=== PATIENT | female | born 1955 | race Caucasian/White ===

== ENCOUNTER 2019-03-28 16:07 | Emergency (ER) | payer BC, OTHER ==
[~2019-03-28] VITALS: Ht 160 cm; Wt 65.8 kg
[~2019-03-28 16:07] MED LIST: ARMOUR THYROID15 MG PO; FEMARA2.5 MG NG; HYDROCORTISONE5 MG PO; IBUPROFEN200 M1 PO
[2019-03-28] MEDS ORDERED: ARMOUR THYROID60 MG PO (16:25)
[2019-03-28] MEDS ORDERED: LACTULOSE10 GM/15 M PO (18:15)
[2019-03-28] MEDS ORDERED: FLEET ENEMA133 ML PR (18:15)
--- NOTE | 2019-03-29 11:49 | EKG ---
[facility] [address] [facility] [place], [place] [address] Signed Normal sinus rhythm Normal ECG No previous ECGs available Confirmed by TONEY GREEN DO ([id number]) on 03/29/2019 11:49:23 AM Electronically Signed By: TONEY GREEN DO 03/29/19 1149 PATIENT NAME: ELIDA LR Electrocardiogram DATE OF : 51 PHYSICIAN: TONEY GREEN DO REPORT #: [id number] REPORT IS CONFIDENTIAL AND NOT TO BE RELEASED WITHOUT AUTHORIZATION
== END 2019-03-28 18:47 | disposition home or self-care (01) ==
LOC: ED 16:07
DX: K59.00 Constipation, unspecified (principal); E03.9 Hypothyroidism, unspecified; Z87.891 Personal history of nicotine dependence; Z88.8 Allergy status to other drugs, medicaments and biological substances; Z88.1 Allergy status to other antibiotic agents; Z88.2 Allergy status to sulfonamides; Z79.899 Other long term (current) drug therapy
CPT/HCPCS: 74176; 80053; 81001; 83690; 85025; 93005; 93010; 96361; 96374; 99284-25; J1885; J7030

== ENCOUNTER 2019-04-10 06:22 | Day surgery (SDC) | payer BC, OTHER ==
[~2019-04-10] VITALS: Ht 160 cm; Wt 63.5 kg
[~2019-04-10 06:22] MED LIST changes: +ACYCLOVIR200 MG PO; +ARMOUR THYROID60 MG PO; +CORDRAN TOP; +FLEET ENEMA133 ML PR; +FLOVENT DISKUS50 MCG INH; +IBUPROFEN400 MG PO; +LACTULOSE10 GM/15 M PO; +LORAZEPAM1 MG PO; +MUPIROCIN1 GM
--- NOTE | 2019-04-10 08:13 | NUR ---
04/10/19 0813 Michelle Lord 0803 PT ARRIVED IN PACU SLEEPY WITH NO C/O'S. ABD SOFT. 0813 AT BEDSIDE TALKING WITH PT.
--- NOTE | 2019-04-11 12:13 | OR ---
[facility] [address] [place], [place] [address] Signed DATE OF OPERATION: 04/10/2019 SURGEON: Rasta Velazquez MD PREOPERATIVE DIAGNOSIS: Colon screening. POSTOPERATIVE DIAGNOSIS: Polyps x3. PROCEDURE: Total colonoscopy to cecum with cold morcellation polypectomy x3. ANESTHESIA: Intravenous sedation, fentanyl 100 mcg, Versed 5 mg. INDICATION: This 63-year-old white woman is a patient of CHRIS Govea, and has been recommended to have surveillance colonoscopy. She has a distant history of mastectomy and radiation therapy on the right side for breast cancer a number of years ago. She underwent colonoscopy [address] Maxx Gregory in [place], which was said to be normal. She is symptom free having no bleeding, diarrhea, or constipation problems. She has no family history of colon cancer that she is aware of. She understands risks of bleeding, infection, and perforation related to colonoscopy and wished to proceed. FINDINGS: The prep was excellent. Complete colonoscopy was undertaken to the cecum. There were two small polyps of the colon, possibly a 3rd, though it may represent only hyperplastic area of the colon. All three were excised. DESCRIPTION OF PROCEDURE: The patient was brought to the endoscopy suite and placed in lateral decubitus position, given intravenous sedation to the point of slurred speech and nystagmus. Digital rectal examination was normal. An Olympus video colonoscope was passed in the rectum and manipulated throughout the colon ultimately intubating the cecum itself. The ileocecal valve and appendiceal orifice were normal. The scope was withdrawn from that point and careful examination showed no sign of abnormality until approximately 40 cm from the anal verge where a small polyp was noted. This was excised with cold morcellation technique. The scope Electronically Signed By: RASTA VELAZQUEZ MD 04/11/19 1213 PATIENT NAME: ELIDA LR OPERATIVE REPORT DATE OF : 51 REPORT #: [id number] PHYSICIAN: RASTA VELAZQUEZ MD PCP: NO PRIMARY CARE PHYSICIAN REPORT IS CONFIDENTIAL AND NOT TO BE RELEASED WITHOUT AUTHORIZATION [facility] [address] [place], [place] [address] Signed was further withdrawn. In the sigmoid, was another similar such polyp, it too was excised with cold morcellation technique. The 3rd area, most likely hyperplastic was located nearby and this was excised as well. Retroflexed view of the rectum was normal. There were no other findings of concern. The scope was removed. The patient was taken to recovery room in good condition. CONCLUDING DIAGNOSIS: Polyps x3. PLAN: Recommend repeat colonoscopy in 5 years sooner if clinically indicated. She will return to the ongoing care of CHRIS Govea. MD MIKE Jones/RODY /[id number] cc: CHRIS Govea Copies: ~ Electronically Signed By: RASTA VELAZQUEZ MD 04/11/19 1213 PATIENT NAME: ELIDA LR OPERATIVE REPORT DATE OF : 51 REPORT #: [id number] PHYSICIAN: RASTA VELAZQUEZ MD PCP: NO PRIMARY CARE PHYSICIAN REPORT IS CONFIDENTIAL AND NOT TO BE RELEASED WITHOUT AUTHORIZATION
--- NOTE | 2019-04-11 14:54 | PATH ---
[facility] [address] [facility] [place] [place] [address] Signed SPECIMEN(S): A COLON POLYP AT 40 CM SPECIMEN(S): B COLON POLYP AT 20 CM SPECIMEN(S): C COLON POLYP AT 15 CM SPECIMEN SOURCE: A. COLON POLYP AT 40 CM B. COLON POLYP AT 20 CM C. COLON POLYP AT 15 CM CLINICAL HISTORY: Surveillance colonoscopy, history breast cancer. MICROSCOPIC DESCRIPTION: Histologic sections of all submitted blocks are examined by light microscopy. These findings, together with the gross examination, support the pathologic diagnosis. FINAL PATHOLOGIC DIAGNOSIS: A. Mucosa, colon at 40 cm, biopsy: - Tubular adenoma. B. Mucosa, colon at 20 cm, biopsy: - Hyperplastic polyp. C. Mucosa, colon at 15 cm, biopsy: - Hyperplastic polyp. LJA:cml:C2NR GROSS DESCRIPTION: Three specimens are received in three containers, labeled "SJ." A. The specimen, labeled "SJ, colon polyp at 40 cm per requisition," is received in formalin and consists of single harris soft tissue fragment that measures 0.3 cm in greatest dimension. The specimen is entirely submitted in cassette (A1). B. The specimen, labeled "SJ, colon polyp at 20 cm per requisition," is received in formalin and consists of three harris soft tissue fragments that measure 0.4 cm in greatest dimension. The specimen is entirely submitted in cassette (B1). C. The specimen, labeled "SJ, possible polyp at 15 cm per container," is received in formalin and consists of two harris soft tissue fragments that measure 0.3 cm in greatest dimension. The specimen is entirely submitted in cassette (C1). AT (under the direct supervision of a pathologist) PATIENT NAME: ELIDA LR PATHOLOGY DATE OF : 51 REPORT #: [id number] PHYSICIAN: ELISHA GALLAGHER PCP: NO PRIMARY CARE PHYSICIAN REPORT IS CONFIDENTIAL AND NOT TO BE RELEASED WITHOUT AUTHORIZATION [facility] [address] [place] [address] Signed The Gross Description was prepared using a voice recognition system. The report was reviewed for accuracy; however, sound-alike word errors, addition and/or deletions may occur. If there is any question about this report, please contact Client Services. PERFORMING LABORATORY: The technical component [place] [address] (Production Control Coordinator: Jessica Flaherty MD; CLIA# [id number]). Professional [facility] by [facility] [place], [address] [address] (CLIA# [id number]). Diagnostician: Adi Garcia MD Pathologist Electronically Signed 04/11/2019 Copies: ~ PATIENT NAME: ELIDA LR PATHOLOGY DATE OF : 51 REPORT #: [id number] PHYSICIAN: ELISHA PATHOLOGY PCP: NO PRIMARY CARE PHYSICIAN REPORT IS CONFIDENTIAL AND NOT TO BE RELEASED WITHOUT AUTHORIZATION
== END 2019-04-10 08:42 | disposition home or self-care (01) ==
LOC: OPS 06:22 → DS 06:22 → OPS 06:45 → DS 06:45 → OPS 08:42
PROVIDERS: Surgery
PROC: 0DBE8ZZ Excision of Large Intestine, Via Natural or Artificial Opening Endoscopic (ICD-10-PCS; principal; 2019-04-10 06:45)
DX: Z12.11 Encounter for screening for malignant neoplasm of colon (principal); D12.6 Benign neoplasm of colon, unspecified; K63.5 Polyp of colon; E03.9 Hypothyroidism, unspecified; Z88.8 Allergy status to other drugs, medicaments and biological substances; Z88.1 Allergy status to other antibiotic agents; Z91.041 Radiographic dye allergy status; Z79.899 Other long term (current) drug therapy; Z85.3 Personal history of malignant neoplasm of breast; Z80.0 Family history of malignant neoplasm of digestive organs
CPT/HCPCS: 99153; G0500; J2250; J3010

== ENCOUNTER 2020-09-25 11:10 | Emergency (ER) | payer BC, OTHER ==
[~2020-09-25] VITALS: Ht 160 cm; Wt 63.5 kg
--- NOTE | 2020-09-28 08:58 | EKG ---
[facility] [address] [facility] [place], [place] [address] Signed Normal sinus rhythm Normal ECG When compared with ECG of 28-MAR-2019 16:22, Questionable change in QRS axis Confirmed by ALMA LOPEZ MD ([id number]) on 09/28/2020 8:58:51 AM Electronically Signed By: ALMA LOPEZ MD 09/28/20 0858 PATIENT NAME: ELIDA LR ANNETTE Electrocardiogram DATE OF : 51 PHYSICIAN: ALMA LOPEZ MD REPORT #: [id number] REPORT IS CONFIDENTIAL AND NOT TO BE RELEASED WITHOUT AUTHORIZATION
== END 2020-09-25 14:27 | disposition home or self-care (01) ==
LOC: ED 11:10
DX: U07.1 COVID-19 (principal); E03.9 Hypothyroidism, unspecified; Z87.891 Personal history of nicotine dependence; Z88.8 Allergy status to other drugs, medicaments and biological substances; Z88.1 Allergy status to other antibiotic agents; Z88.2 Allergy status to sulfonamides; Z79.899 Other long term (current) drug therapy
CPT/HCPCS: 71045; 80053; 83735; 84484; 85025; 93005; 93010; 94640; 94664; 99285-25; J7030

== ENCOUNTER 2022-01-24 23:02 | Emergency (ER) | payer BC, OTHER ==
[~2022-01-24] VITALS: Ht 160 cm; Wt 60.1 kg
--- NOTE | 2022-01-25 13:11 | EKG ---
[facility] [address] [facility] [place] [address] Signed Normal sinus rhythm Normal ECG When compared with ECG of 25-SEP-2020 13:11, No significant change was found Confirmed by ALMA LOPEZ MD ([id number]) on 01/25/2022 1:11:08 PM Electronically Signed By: ALMA LOPEZ MD 01/25/22 1311 PATIENT NAME: ELIDA LR Electrocardiogram DATE OF : 51 PHYSICIAN: ALMA LOPEZ MD REPORT #: [id number] REPORT IS CONFIDENTIAL AND NOT TO BE RELEASED WITHOUT AUTHORIZATION
== END 2022-01-25 02:09 | disposition home or self-care (01) ==
LOC: ED 23:02
DX: R07.89 Other chest pain (principal); E03.9 Hypothyroidism, unspecified; Z87.891 Personal history of nicotine dependence; Z91.041 Radiographic dye allergy status; Z88.2 Allergy status to sulfonamides; Z88.8 Allergy status to other drugs, medicaments and biological substances; Z79.899 Other long term (current) drug therapy
CPT/HCPCS: 36415; 71045; 80053; 84484; 85025; 93005; 93010; 99285-25; A9270

== ENCOUNTER 2024-06-20 05:45 | Day surgery (SDC) | payer MEDICARE, OTHER ==
[2024-06-15 12:00] VITALS: BP 120/71
[~2024-06-20] VITALS: Ht 160 cm; Wt 54.1 kg
[2024-06-20] VITALS (7 sets, daily range): BP systolic 124–145; BP diastolic 57–75
[~2024-06-20 05:45] MED LIST changes: +LACTATED RINGER'S 1,000 ML IV SCH
[2024-06-20] MEDS ORDERED: TYLENOL EXTRA500 MG PO (06:07)
[2024-06-20] MEDS ORDERED: IBU600 MG PO (06:07)
[2024-06-20] MEDS ORDERED: CEFAZOLIN SODIUM 2 GM/20 ML SYR IV SCH (07:00)
[2024-06-20] MEDS ORDERED: HEParin SOD (PORCINE) 5,000 UNIT/ML SDV SUB-Q SCH (07:00)
[2024-06-20] MEDS ORDERED: LIDOCAINE HCL 1% 5 ML SDV INJ ONE (07:00)
[2024-06-20] MEDS ORDERED: IBLOOD GLUCOSE TEST STRIP 1 EA TEST VI PRN ×2 (07:00→08:00)
[2024-06-20] MEDS ORDERED: ondansetron HCL 4 MG/2 ML VIAL ONE (07:21)
[2024-06-20] MEDS ORDERED: fentaNYL citrate 100 MCG/2 ML VIAL ONE (07:21)
[2024-06-20] MEDS ORDERED: DEXAMETHASONE SOD PHOS 4 MG/ML VIAL ONE (07:21)
[2024-06-20] MEDS ORDERED: propofoL 200 MG/20 ML VIAL ONE (07:21)
[2024-06-20] MEDS ORDERED: LIDOCAINE HCL 2% 5 ML SDV ONE (07:22)
[2024-06-20] MEDS ORDERED: ACETAMINOPHEN 1,000 MG/100 ML VIAL ONE (07:22)
--- NOTE | 2024-06-20 07:36 | NUR ---
VISITED DURING SPIRITUAL CARE ROUNDS. PT IN OVERALL GOOD SPIRITS, NO IMMEDIATE NEEDS. REPEATER OPERATOR PROVIDED SUPPORTIVE PRESENCE, HOSPITALITY, PRAYER. PT EXPRESSED GRATITUDE.
[2024-06-20] MEDS ORDERED: ondansetron HCL 4 MG/2 ML VIAL IV PRN ×2 (08:00→08:30)
[2024-06-20] MEDS ORDERED: fentaNYL citrate 50 MCG/ML SDV IV PRN (08:00)
[2024-06-20] MEDS ORDERED: NALOXONE HCL 0.4 MG SYR IV PRN ×2 (08:00→08:30)
[2024-06-20] MEDS ORDERED: KETOROLAC TROMETHAMINE 30 MG/ML VIAL IV PRN (08:00)
[2024-06-20] MEDS ORDERED: ePHEDrine sulfate 50 MG/ML AMP ONE (08:01)
--- NOTE | 2024-06-20 08:26 | NUR ---
06/20/24 0826 Shahla Salas PATIENT ARRIVES IN PACU AWAKE. SHE IS CONVERSING WITH ME. SHE BEGINS GRUNTING WITH EXHALATION AND REPORTS PAIN, 9/10. PRN IS GIVEN. PATIENT CONTINUES TO BE RESTLESS. SHE RATES PAIN 8/10. PRN IS GIVEN.
[2024-06-20] MEDS ORDERED: ACETAMINOPHEN 500 MG TAB PO PRN (08:30)
[2024-06-20] MEDS ORDERED: LACTATED RINGER'S 1,000 ML IV SCH (08:30)
[2024-06-20] MEDS ORDERED: IBUPROFEN 600 MG TAB PO PRN (08:30)
[2024-06-20] MEDS ORDERED: OXYCODONE/APAP 7.5/325 TAB PO PRN (08:30)
[2024-06-20] MEDS ORDERED: IBUPROFEN600 MG PO (08:37)
[2024-06-20] MEDS ORDERED: OXYCODON-ACETA1 EAC2 PO (08:37)
[2024-06-20] MEDS ORDERED: ACETAMINOPHEN500 MG PO (08:38)
[2024-06-20] MEDS ORDERED: METRONIDAZOLE250 MG PO (08:39)
[2024-06-20] MEDS ORDERED: AUGMENTIN 500-1 EACH PO (08:39)
[2024-06-20] MEDS ORDERED: DOXYCYCLINE HY100 MG PO (08:40)
--- NOTE | 2024-06-20 09:51 | NUR ---
LE 0855-PT BACK TO ROOM FROM PACU ON RA. RECEIVED REPORT FROM REN LITTLEJOHN. PT IS AWAKE. RESP EVEN AND UNLABORED. RATES PAIN 7/10. DENIES NAUSEA. WOUND VAC IN PLACE AND RUNNING, GOOD SEAL NOTED. PT EATING PUDDING AND DRINKING WATER. AT BEDSIDE. CALL LIGHT WITHIN REACH. LE 0906-PAIN MEDICATION GIVEN PER EMAR. NO OTHER NEEDS AT THIS TIME. CALL LIGHT WITHIN REACH.
--- NOTE | 2024-06-20 09:54 | NUR ---
LE 0945-PT RATES PAIN A 08/31. PAIN MEDICATION GIVEN PER EMAR. LE 0946-PT LAYING IN BED AWAKE. RESP EVEN AND UNLABORED. DENIES NAUSEA. WOUND VAC IN PLACE AND RUNNING. GOOD SEAL NOTED. PT TAKING SIPS OF WATER. NO OTHER NEEDS AT THIS TIME. AT BEDSIDE. CALL LIGTH WITHIN REACH.
[2024-06-20] MEDS ORDERED: HYDROmorphone HCL 4 MG TAB PO ONE (10:30)
--- NOTE | 2024-06-20 10:32 | NUR ---
1025-PT CONTINUES TO RATES PAIN 08/31. VO PER DR. VELAZQUEZ FOR DILAUDID 4MG PO NOW AND TORADOL 15MG IV PER KELVIN GOMEZ.
--- NOTE | 2024-06-20 12:31 | NUR ---
LE 1155-PT LAYING IN BED AWAKE. RESP EVEN AND UNLABORED. PT RATES PAIN 3/10. SOME NAUSEA. WOUND VAC IN PLACE AND RUNNING. PT READY TO GO HOME. PT WILL GET DRESSED. IN ROOM TO HELP. LE 1215-PT WOULD LIKE SOMETHING FOR NAUSEA. ZOFRAN GIVEN PER EMAR. PT EATING CRACKERS AND TAKING SIPS OF WATER. LE 1225-WENT OVER DISCHARGE INSTRUCTIONS WITH PT AND . WENT OVER POSTOP MEDICATIONS. ALL QUESTIONS ANSWERED.
--- NOTE | 2024-06-20 12:35 | NUR ---
1228-PT UP TO RESTROOM WITH RN ASSIST. GAIT UNSTEADY BUT TOLERATED WELL. PT VOIDS. 1231-PT BACK TO ROOM. PT FEELING DIZZY AND HOT. PT LAYING DOWN. COOL CLOTH PLACED ON HEAD. PT TAKING SIPS OF WATER. AT BEDSIDE. CALL LIGHT WITHIN REACH.
--- NOTE | 2024-06-20 13:06 | NUR ---
PT LAYING DOWN. STILL HAVING SOME NASUEA. PT EATING CRACKERS AND TAKING SIPS OF WATER. STILL WANTING MORE TIME. AT BEDSIDE. NO OTHER NEEDS AT THIS ALEX. CALL LIGHT WITHIN REACH.
--- NOTE | 2024-06-20 14:53 | NUR ---
1435-PT LAYING IN BED AWAKE. RESP EVEN AND UNLABORED. RATES PAIN 3/10. NAUSEA BETTER. PT STATES STARTING TO FEEL A LITTLE BETTER. PT WOULD LIKE A LITTLE MORE TIME TO REST. AT BEDSIDE. CALL LIGHT WITHIN REACH.
[2024-06-20] MEDS ORDERED: SEVOFLURANE 250 ML BTL INH ONE (15:59)
--- NOTE | 2024-06-20 16:35 | NUR ---
LISA 1620-PT LAYING IN BED. STATES "HAVING TWINGES OF PAIN IN RIGHT CHEST AGAIN". DECLINES PAIN MEDICATION AT THIS TIME. ENCOURAGED PT THE NEED TO START MOVING AGAIN. PT AGREES TO WHEN RETURNS FROM THE PHARMACY. CALL LIGHT WITHIN REACH.
--- NOTE | 2024-06-20 17:05 | NUR ---
LE 1705-PT UP TO RESTROOM WITH 1 RN ASSIST. GAIT UNSTEADY BUT TOLERATED WELL. PT STATES FEELING NAUSEATED WITH AMBULATION. PT ABLE TO VOID. PT VOMITS WHEN IN RESTROOM. LE 1715-PT BACK TO ROOM. WILL BRING CAR TO FRONT OF HOSPITAL. PT READY TO GO HOME. (DISCHARGE INFO WAS GIVEN AT 1225, SEE NOTE) LE 1720-RIDE PROVIDED TO FRONT OF HOSPITAL WHERE WAS WAITING WITH THE CAR. PT HAS EMESIS BAG TO TRAVEL HOME WITH. ENCOURAGED PT TO TAKE ZOFRAN THAT WAS PRESCRIBED.
--- NOTE | 2024-06-21 11:03 | OR ---
[facility] [address] [place], [place] [address] Signed DATE OF OPERATION: 06/20/2024 SURGEON: Rasta Velazquez MD PREOPERATIVE DIAGNOSES: 1. Necrotic right chest wall wound with secondary infection, 4.5 x 4.0 cm. 2. History of bilateral breast cancer, status post mastectomy and radiation therapy. POSTOPERATIVE DIAGNOSES: 1. Necrotic right chest wall wound with secondary infection 4.5 x 4 4.0 cm. 2. History of bilateral breast cancer status post mastectomy and radiation therapy. 3. Actual necrotic tissue 9.0 x 4.5 cm x 1.0 cm deep. PROCEDURES: 1. Debridement of chest wall wound including skin, subcutaneous tissue, and fibrotic muscle defect 9.0 x 4.5 x 1.0 cm. 2. Application of wound VAC device. ANESTHESIA: General LMA, Nilesh Larson CRNA. INDICATION: This 68-year-old white woman underwent bilateral mastectomy for breast cancer treatment many years ago as well as subsequent intensive radiation therapy. She has no evidence of disease these many years later, but has over time developed a punched-out wound over the right chest wall inferior to the transverse incision from the past. This appeared secondarily infected and has been treated with antibiotics. A PET scan was performed showed no evidence of metastatic disease. She has had five bilateral small pulmonary nodules up to 8 mm in size without increased activity and they have been present on prior imaging studies. 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 She is admitted at this time to undergo debridement of the necrotic tissue back to normal tissue ultimately anticipating wound VAC application to allow for granulation and skin grafting for definitive closure of the wound. The fibrotic nature of her soft tissue in the surrounding chest wall precludes reasonable flap closure. The patient and her understand the risk of operation including, but not limited to bleeding, infection, failure to cure the problem, need for other means of management including hyperbaric therapy and so forth and wished to proceed. Electronically Signed By: RASTA VELAZQUEZ MD 06/21/24 1103 PATIENT NAME: ELIDA LR OPERATIVE REPORT DATE OF : 51 REPORT #: [id number] PHYSICIAN: RASTA VELAZQUEZ MD PCP: TRACE BRYAN MD REPORT IS CONFIDENTIAL AND NOT TO BE RELEASED WITHOUT AUTHORIZATION [facility] [address] [place], [place] [address] Signed FINDINGS: The initial lesion was approximately 4.5 x 4.5 cm and the base was foul smelling with yellow necrotic tissue on the chest wall. This had undermined significantly surrounding the area. The ultimate debridement size 9.0 x 4.5 x 1.0 cm. Complete debridement to viable tissue was undertaken though the remaining skin and so forth does have fibrosis as well. Gram stain and cultures were obtained. The excision included skin, subcutaneous tissue, and some level of underlying fibrotic fat tissue. The base of the wound now appears viable with punctate bleeding and clearance of infected tissue and a wound VAC device has been applied. The final debrided wound is 9.0 x 4.5 x 1.0 cm. DESCRIPTION OF PROCEDURE: The patient was brought to the operating room, given a general LMA type anesthetic. Right chest wall was prepared with a Betadine based solution and draped sterilely. Foul smelling mucopurulent fluid was noted in the superolateral aspect with undermined skin. Gram stain and cultures were obtained. Using a 15 blade, sharp dissection was undertaken on the edges of the wound concentrically increasing the size of debridement back to viable tissue. Thick fibrotic necrotic tissue was debrided from the base of the wound as well using sharp dissection. Ultimately, a sharp small banjo curette was used to debride the chest wall and subcutaneous tissues back to viable tissue completely. Products of debridement were sent for Pathology. Electrocautery was used for hemostasis ultimately. Irrigation was undertaken with sterile saline solution. The wound was measured as 9.0 x 4.5 x 1.0 cm. A wound VAC sponge was applied to the base of the wound, attached in the usual way and applied to 125 mmHg continuous suction. She tolerated the procedure well. Blood loss was less than 20 mL in aggregate. Sponge, needle, and instrument counts were as correct x3. Rasta Velazquez MD /MODL /[id number] cc: Trace Bryan MD Electronically Signed By: RASTA VELAZQUEZ MD 06/21/24 1103 PATIENT NAME: ELIDA LR OPERATIVE REPORT DATE OF : 51 REPORT #: [id number] PHYSICIAN: RASTA VELAZQUEZ MD PCP: TRACE BRYAN MD REPORT IS CONFIDENTIAL AND NOT TO BE RELEASED WITHOUT AUTHORIZATION [address] [address] Signed Copies: TRACE BRYAN MD ~ Electronically Signed By: RASTA VELAZQUEZ MD 06/21/24 1103 PATIENT NAME: ELIDA LR OPERATIVE REPORT DATE OF : 51 REPORT #: [id number] PHYSICIAN: RASTA VELAZQUEZ MD PCP: TRACE BRYAN MD REPORT IS CONFIDENTIAL AND NOT TO BE RELEASED WITHOUT AUTHORIZATION
--- NOTE | 2024-06-23 10:43 | PATH ---
[facility] [address] [place], [place] [address] Signed SPECIMEN(S): A PRODUCTS OF DEBRIDEMENT SPECIMEN SOURCE: A. PRODUCTS OF DEBRIDEMENT CLINICAL HISTORY: History of malignant neoplasm of breast; open wound of chest wall right. FINAL PATHOLOGIC DIAGNOSIS: Skin and soft tissue from right chest wall, debridement: - Benign skin and soft tissue with ulceration, soft tissue necrosis, and acute inflammation. - No malignancy identified. COMMENT: Stains are performed (Block A1) AE1/AE3: Negative for malignancy CD68: Diffuse positive. P MICROSCOPIC EXAMINATION: Histologic sections of all submitted blocks are examined by light microscopy. These findings, together with the gross examination, support the pathologic diagnosis. GROSS DESCRIPTION: The specimen, labeled and designated "Juanito products of debridement right breast," is received in formalin and consists of multiple irregular shaped skin and subcutaneous tissue fragments that aggregate measure 8.5 x 5.5 x 0.8 cm. Sectioning through the specimen reveal a pink-harris, focally congested and friable tissue. Slip Cover Operator sections are submitted in (A1). JS (under the direct supervision of a pathologist) The Gross Description was prepared using a voice recognition system. The report was reviewed for accuracy; however, sound-alike word errors, addition and/or deletions may occur. If there is any question about this report, please contact Client Services. ADDITIONAL NOTES: Immunohistochemical and/or in situ hybridization studies if performed in this case included appropriate positive controls that reacted as expected. This PATIENT NAME: ELIDA LR PATHOLOGY DATE OF : 51 REPORT #: [id number] PHYSICIAN: ELISHA GALLAGHER PCP: TRACE BRYAN MD REPORT IS CONFIDENTIAL AND NOT TO BE RELEASED WITHOUT AUTHORIZATION [facility] [address] [place] [address] [place], [place] [address] Signed test was developed and its performance characteristics determined by [employer]. It has not been cleared or approved by the U.S. Food and Drug Administration. The FDA has determined that such clearance or approval is not necessary. This test is used for clinical purposes. It should not be regarded as investigational or for research. [employer] is certified under the Clinical Laboratory Improvement Amendments of 1988 (CLIA) as qualified to perform high complexity clinical laboratory testing. PERFORMING LABORATORY: Technical component was performed by [employer], [address] [place] [id number] (CLIA# [id number]). Professional interpretation was performed by [facility], [address] [place] [id number] (CLIA#: [id number]). Diagnostician: Denys Owens MD Pathologist Electronically Signed 06/23/2024 Copies: ~ PATIENT NAME: ELIDA LR PATHOLOGY DATE OF : 51 REPORT #: [id number] PHYSICIAN: ELISHA PATHOLOGY PCP: TRACE BRYAN MD REPORT IS CONFIDENTIAL AND NOT TO BE RELEASED WITHOUT AUTHORIZATION
== END 2024-06-20 17:20 | disposition home or self-care (01) ==
LOC: DS 05:45
PROVIDERS: ATTEND Surgery
PROC: 0KBH0ZZ Excision of Right Thorax Muscle, Open Approach (ICD-10-PCS; principal; 2024-06-20 07:30)
DX: T81.49XA Infection following a procedure, other surgical site, initial encounter (principal); I96 Gangrene, not elsewhere classified; Y83.8 Other surgical procedures as the cause of abnormal reaction of the patient, or of later complication, without mention of misadventure at the time of the procedure; Z85.3 Personal history of malignant neoplasm of breast; Z88.8 Allergy status to other drugs, medicaments and biological substances; Z88.1 Allergy status to other antibiotic agents; Z79.899 Other long term (current) drug therapy; E03.9 Hypothyroidism, unspecified
CPT/HCPCS: 00300; 87070; 87075; 87205; 88305; 88341; 88342; J0131; J0690; J1100; J1644; J1885; J2003; J2405; J2704; J3010; J7121

== ENCOUNTER 2024-07-13 07:50 | Day surgery (SDC) | payer MEDICARE, OTHER ==
[~2024-07-13] VITALS: Ht 160 cm; Wt 55.0 kg
--- NOTE | ~2024-07-13 | OR ---
[facility] [address], [place] [address] Draft DATE OF OPERATION: 07/13/2024 SURGEON: Rasta Velazquez MD PREOPERATIVE DIAGNOSES: 1. Right chest wall soft tissue defect 8.5 x 4.5 cm. 2. History of bilateral mastectomy and post mastectomy radiation therapy. 3. 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 4. Recent ongoing wound preparation with wound VAC device. POSTOPERATIVE DIAGNOSES: 1. Right chest wall soft tissue defect 8.5 x 4.5 cm. 2. History of bilateral mastectomy and post mastectomy radiation therapy. 3. 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 4. Recent ongoing wound preparation with wound VAC device. PROCEDURES: 1. Curettage and debridement and preparation of right chest wall for skin graft 8.5 x 4.5 cm. 2. Application of split-thickness skin graft 0.15 inches, meshed 1-1.5 to right chest wall (38 square cm). ANESTHESIA: General LMA; Cecile Mccord CRNA. INDICATION: This 68-year-old white woman is a patient Dr. Bryan at [facility]. Many years ago, she underwent bilateral mastectomy for breast cancer with postoperative radiation therapy. 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 Subsequently, it became infected. 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 She has been appropriately treated since that time including wound VAC therapy and antibiotics. The wound now measures about 9 x 5 cm and is granulating at the base very nicely. A few days ago, I did outpatient minimal debridement with a curette in the day surgery area. Re-application of wound VAC device was undertaken. Given the recovery of the wound thus far, definitive coverage will likely require skin graft and I have offered that at this time. The risk of bleeding, infection, graft failure, need for additional treatment in PATIENT NAME: ELIDA LR OPERATIVE REPORT DATE OF : 51 REPORT #: [id number] PHYSICIAN: RASTA VELAZQUEZ MD PCP: TRACE BRYAN MD REPORT IS CONFIDENTIAL AND NOT TO BE RELEASED WITHOUT AUTHORIZATION [facility] [address], [place] [address] Draft the future, and other unforeseen complications was reviewed with her in detail. She understands and wished to proceed. FINDINGS: The wound base was granulating well, but definitely directly over the chest wall itself. Debridement of the edges of the wound was undertaken with curettage. The donor site for skin grafting was on the right lateral hip. The measured defect for the recipient graft was 8.5 x 4.5 cm (38 cm2). She tolerated procedure well. Blood loss was minimal. DESCRIPTION OF PROCEDURE: The patient was brought to the operating room, given a general LMA type anesthetic. Preoperative antibiotic Ancef was given. Sequential compression device stockings were used. The right hip and right chest wall prepared with a Betadine based solution and draped sterilely. Curettage of the right chest wall wound was undertaken with a loop curette, debriding some fibrinous exudate particularly on the edges of the wound. The wound had exuberant bleeding at conclusion of the debridement and epinephrine-saline soaked gauze was applied to the site. Attention was turned to the right lateral thigh for harvest of skin graft. The area was covered with mineral oil and with tension proximally and distally, a Vignesh dermatome with appropriate sizing at 0.015 inches was used to excise a single segment of skin. The excision went without problem. The site was secured with epinephrine-soaked saline. The graft was then placed on a 1-1.5 board for meshing and meshed in that ratio without problem. Attention was turned towards the recipient site. Good hemostasis was noted. The skin graft was applied from the board to the site without problem. It was secured with meticulous care to the skin edges and a few in the central portion of the wound with interrupted 3-0 Vicryl suture. Some bacitracin was applied to an Adaptic gauze and applied directly over the site as were fluff gauze dressings. This was later secured with two OpSites. The donor site appeared to be surprisingly hemostatic. It was covered with a single OpSite after cleansing. The patient was ultimately extubated and transferred to the recovery room in good condition having suffered no complications. Sponge, needle, and instrument counts reported as correct x3. Rasta Velazquez MD PATIENT NAME: ELIDA LR OPERATIVE REPORT DATE OF : 51 REPORT #: [id number] PHYSICIAN: RASTA VELAZQUEZ MD PCP: TRACE BRYAN MD REPORT IS CONFIDENTIAL AND NOT TO BE RELEASED WITHOUT AUTHORIZATION [address] [address] Draft [facility] /[id number] cc: Dr. Trace Bryan [facility] Copies: ~ PATIENT NAME: ELIDA LR ANNETTE OPERATIVE REPORT DATE OF : 51 REPORT #: [id number] PHYSICIAN: RASTA VELAZQUEZ MD PCP: TRACE BRYAN MD REPORT IS CONFIDENTIAL AND NOT TO BE RELEASED WITHOUT AUTHORIZATION
[~2024-07-13 07:50] MED LIST changes: +24 HOUR ALLERG9.9 ML NS; +ACETAMINOPHEN500 MG PO; +AUGMENTIN 500-1 EACH PO; +CEFAZOLIN SODIUM 2 GM/20 ML SYR IV SCH; +DOXYCYCLINE HY100 MG PO; +HEParin SOD (PORCINE) 5,000 UNIT/ML SDV SUB-Q SCH; +IBLOOD GLUCOSE TEST STRIP 1 EA TEST VI PRN; +IBU600 MG PO; +IBUPROFEN600 MG PO; +LIDOCAINE HCL 1% 5 ML SDV INJ ONE; +METRONIDAZOLE250 MG PO; +OXYCODON-ACETA1 EAC2 PO; +TYLENOL EXTRA500 MG PO
[2024-07-13 08:17] VITALS: BP 140/68
[2024-07-13] MEDS ORDERED: DEXAMETHASONE SOD PHOS 4 MG/ML VIAL ONE (08:55)
[2024-07-13] MEDS ORDERED: ondansetron HCL 4 MG/2 ML VIAL ONE (08:55)
[2024-07-13] MEDS ORDERED: LIDOCAINE HCL 1% 30 ML SDV ONE (08:55)
[2024-07-13] MEDS ORDERED: KETOROLAC TROMETHAMINE 30 MG/ML VIAL ONE (08:55)
[2024-07-13] MEDS ORDERED: propofoL 200 MG/20 ML VIAL ONE (08:55)
[2024-07-13] MEDS ORDERED: dexmedeTOMIDine HCl 200 MCG/2 ML VIAL ONE (08:55)
[2024-07-13] MEDS ORDERED: LIDOCAINE HCL 2% 5 ML SDV ONE (08:55)
[2024-07-13] MEDS ORDERED: fentaNYL citrate 100 MCG/2 ML VIAL ONE (08:56)
[2024-07-13] MEDS ORDERED: MIDAZOLAM HCL 2 MG/2 ML VIAL ONE (08:56)
[2024-07-13] MEDS ORDERED: SODIUM CHLORIDE 0.9% 500 ML IV ONE (09:05)
[2024-07-13] MEDS ORDERED: ePHEDrine sulfate 50 MG/ML AMP ONE (09:53)
[2024-07-13] MEDS ORDERED: ondansetron HCL 4 MG/2 ML VIAL IV PRN (10:30)
[2024-07-13] MEDS ORDERED: NALOXONE HCL 0.4 MG SYR IV PRN ×2 (10:30→10:45)
[2024-07-13] MEDS ORDERED: IBLOOD GLUCOSE TEST STRIP 1 EA TEST VI PRN (10:30)
[2024-07-13] MEDS ORDERED: fentaNYL citrate 50 MCG/ML SDV IV PRN (10:30)
[2024-07-13] MEDS ORDERED: HYDROMORPHONE HC2 MG PO (10:43)
[2024-07-13] MEDS ORDERED: IBUPROFEN 600 MG TAB PO PRN (10:45)
[2024-07-13] MEDS ORDERED: ACETAMINOPHEN 500 MG TAB PO PRN (10:45)
[2024-07-13] MEDS ORDERED: HYDROmorphone HCL 2 MG TAB PO PRN (10:45)
[2024-07-13] MEDS ORDERED: LACTATED RINGER'S 1,000 ML IV SCH (10:45)
[2024-07-13] MEDS ORDERED: DOXYCYCLINE HY100 MG PO (10:48)
[2024-07-13] MEDS ORDERED: PERCOCET 7.5-31 EACH PO (10:49)
[2024-07-13 11:12] VITALS: BP 143/70
--- NOTE | 2024-07-13 11:14 | NUR ---
LE 1110: PT IS BACK TO DS FROM PACU. SHE IS TOLERATING WATER AND APPLE SAUCE. CALL LIGHT WITHIN REACH. IS AT THE BEDSIDE TABLE. NO ADDITIONAL NEEDS OR CONCERNS. DC CRITERIA IS REVIEWED WITH PT AND . THEY BOTH VERBALIZE UNDERSTANDING.
[2024-07-13] MEDS ORDERED: OXYCODONE/APAP 7.5/325 TAB PO PRN (11:30)
--- NOTE | 2024-07-13 11:36 | NUR ---
07/13/24 1136 Sheets,Aura 1019 PT ARRIVED TO PACU ON 6L VIA MASK, RESP EVEN AND UNLABORED BUT SHALLOW AND PERIOD OF APNEA NOTED. SMALL CHIN LIFT USED TO MAINTAIN AIRWAY, BREATHING NOTED. 1022 RESP DEPTH INCREASED AND NO CHIN LIFT NEEDED. 1025 PT WAKES AND O2 REMOVED. PT REORIENTED TO PACU AND ALL QUESTIONS ANSWERED AND PT DENIES NAUSEA AND PAIN IS TOLERABLE 07/01. 1035 PT REPORTS PAIN HAS INCREASED AND PAIN MEDICATION GIVEN. PLAN OF CARE DISCUSSED. 1050 PT RESTING AND O2 DECREASED TO 89%, DEEP BREATHING ENCOURAGED AND O2 INCREASED TO MID 90S. HOB INCREASED AND PT SIPPING WATER. 1058 PT EATING APPLESAUCE AND ORAL PAIN MEDICATION GIVEN. PT CONTINUES TO DENY NAUSEA. 1110 PT RETURNED TO ROOM WITH AT BEDSIDE AND ALL QUESTIONS ANSWERED. VSS. WARM AIR PLACED PER REQUEST.
--- NOTE | 2024-07-13 12:14 | NUR ---
PATIENT ASSISTED OOB AND TO BATHROOM. GAIT STEADY. VOID WITHOUT DIFFICULTY. GAIT STEADY BACK TO ROOM. SCDs ON. CALL LIGHT WITHIN REACH. AT BEDSIDE.
[2024-07-13 12:17] VITALS: BP 149/66
--- NOTE | 2024-07-13 12:18 | NUR ---
PT WAS UP TO THE BATHROOM AND IS SINCE FEELING A LITTLE NAUSEATED. SHE ASKS FOR 7 UP AND CRACKERS. PAIN IS IMPROVING AFTER THE PAIN PILL - REPORTS IT IS NOT SHARP OR STABBING. CALL LIGHT WITHIN REACH. AT THE BEDSIDE.
[2024-07-13 13:14] VITALS: BP 137/58
--- NOTE | 2024-07-13 13:20 | NUR ---
LE 1316: PT IS ASSISTED UP OOB TO THE BATHROOM. SHE REPORTS PAIN AND NAUSEA ARE BETTER. LE 1320: PT IS EDUCATED TO SAT SEATED MUCH SHE CAN WHILE GETTING DRESSED AND TO NOT BEND OVER AT THE WAIST. THIS RN STAYS IN ROOM WHILE PT GETS DRESSED. IN ROOM WELL.
--- NOTE | 2024-07-13 14:34 | NUR ---
LE 1330: PT AND ARE GIVEN WRITTEN AND VERBAL DC INSTRUCTIONS. THEY BOTH VERBALIZE UNDERSTANDING. QUESTIONS ARE ASKED AND ANSWERED. LE 1335: PT IS TAKEN TO PERSONAL VEHICLE VIA WC. SHE IS ABLE TO TRANSFER HERSELF WITHOUT ISSUES.
[2024-07-13] MEDS ORDERED: SEVOFLURANE 250 ML BTL INH ONE (15:53)
== END 2024-07-13 13:35 | disposition home or self-care (01) ==
LOC: DS 07:50 → EDSTATUS 09:00 → DS 13:35
PROVIDERS: ATTEND Surgery
PROC: 0HBHXZZ Excision of Right Upper Leg Skin, External Approach (ICD-10-PCS; 2024-07-13)
PROC: 0HR5X74 Replacement of Chest Skin with Autologous Tissue Substitute, Partial Thickness, External Approach (ICD-10-PCS; principal; 2024-07-13 09:00)
DX: S21.101A Unspecified open wound of right front wall of thorax without penetration into thoracic cavity, initial encounter (principal); X58.XXXA Exposure to other specified factors, initial encounter; E03.9 Hypothyroidism, unspecified; Z98.890 Other specified postprocedural states; Z79.890 Hormone replacement therapy; Z79.899 Other long term (current) drug therapy; Z88.1 Allergy status to other antibiotic agents; Z88.8 Allergy status to other drugs, medicaments and biological substances
CPT/HCPCS: A9270; J0690; J1100; J1644; J1885; J2003; J2250; J2405; J2704; J3010; J7040; J7121